=== PATIENT | female | born 2000 | race Caucasian/White ===

== ENCOUNTER 2022-05-06 09:46 | Emergency (ER) | payer MEDICAID ==
[~2022-05-06] VITALS: Ht 160 cm; Wt 64.0 kg
[2022-05-06 09:55] VITALS: BP 131/77
[2022-05-06] MEDS ORDERED: ONDANSETRON 4MG ODT PO STA (10:52)
[2022-05-06] MEDS ORDERED: MAGNESIUM/ALUMINUM HYDROXIDE/SIMETHICONE 30ML UDC PO STA (10:52)
[2022-05-06] MEDS ORDERED: VISCOUS LIDOCAINE 2% 15 ML UDC PO STA (10:52)
[2022-05-06] MEDS ORDERED: FAMOTIDINE 20MG TABLET PO ONE (11:00)
[2022-05-06 11:53] LABS: BASOPHILS % 0.2 % (0.0-2.0); EOSINOPHILS % 0.2 % (0.0-5.0); HEMATOCRIT. 41.5 % (36.0-48.0); HEMOGLOBIN. 14.1 g/dL (12.0-16.0); LYMPHOCYTES % 15.4 % (20.0-50.0); MEAN CORPUSCULAR HEMOGLOBIN 29.5 pg (28.0-32.0); MEAN CORPUSCULAR VOLUME 87.1 fL (81.0-99.0); MEAN PLATELET VOLUME 9.5 fl (7.4-10.4); MONOCYTES % 2.5 % (2.0-8.0); NEUTROPHILS % 81.7 % (40.0-76.0); PLATELET 228 x1000/uL (130-400); RED BLOOD CELL COUNT 4.76 mill/uL (4.2-5.4); RED CELL DISTRIBUTION WIDTH 13.4 % (11.6-14.6)
[2022-05-06 12:10] LABS: CHLORIDE 107 mEq/L (98-107)
[2022-05-06 12:13] LABS: HCG SCREEN NEGATIVE
[2022-05-06 13:56] LABS: CLARITY URINE CLOUDY (CLEAR); COLOR URINE DARK YELLOW (YELLOW); KETONES URINE 1+ (NEGATIVE); LEUKOCYTE ESTERASE URINE NEGATIVE (NEGATIVE); NITRITE URINE NEGATIVE (NEGATIVE); OCCULT BLOOD URINE NEGATIVE (NEGATIVE); PH URINE >=9.0 (4.5-8.0); PROTEIN URINE 1+ (NEGATIVE); SPECIFIC GRAVITY URINE 1.034 (1.005-1.030)
[2022-05-06] MEDS ORDERED: ONDANSETRON 4MG ODT PO NR (14:00)
[2022-05-06] MEDS ORDERED: FAMOTIDINE 20MG TABLET PO NR (14:00)
[2022-05-06] MEDS ORDERED: MAGNESIUM/ALUMINUM HYDROXIDE/SIMETHICONE 30ML UDC PO NR (14:00)
[2022-05-06] MEDS ORDERED: VISCOUS LIDOCAINE 2% 15 ML UDC PO NR (14:00)
[2022-05-06] MEDS ORDERED: FAMO-135 MT (15:05)
[2022-05-06] MEDS ORDERED: NITR-87 MT (15:05)
== END 2022-05-06 15:30 | disposition home or self-care (01) ==
LOC: ER 09:46
DX: N39.0 Urinary tract infection, site not specified (principal)
CPT/HCPCS: 36415; 76700; 80053; 81003; 83690; 84703; 85025; 99284; Q0162